=== PATIENT | female | born 1970 | race Caucasian/White ===

== ENCOUNTER 2017-06-27 21:37 | Emergency (ER) | payer OTHER ==
[2017-06-27 22:04] VITALS: BP 116/70; PULSE 62; RESP 18; TEMP 96.4
[2017-06-27 22:36] LABS: Glucose,Whole Blood 98 mg/dL (75-99)
== END 2017-06-27 22:58 | disposition left against medical advice (07) ==
LOC: EC 21:37
DX: T50.905A Adverse effect of unspecified drugs, medicaments and biological substances, initial encounter (principal); R14.0 Abdominal distension (gaseous)
CPT/HCPCS: 36415; 99499

== ENCOUNTER 2020-02-06 19:57 | Emergency (ER) | payer OTHER ==
--- NOTE | 2020-02-06 21:26 | XR ---
EXAMINATION TYPE: XR Hip Complete LT DATE OF EXAM: 02/06/2020 COMPARISON: NONE HISTORY: Hip pain TECHNIQUE: FINDINGS: 2 views were obtained and show no fracture nor dislocation. Hip joint space is fairly donte l. Sacroiliac joint appears intact. IMPRESSION: Negative left hip exam.
--- NOTE | 2020-02-06 21:40 | ED ---
Lower Extremity Injury HPI - General Chief Complaint: Extremity Injury, Lower Stated Complaint: Hip pain Time Seen by Provider: 02/06/20 20:14 Source: patient Mode of arrival: ambulatory Limitations: no limitations - History of Present Illness Initial Comments: 49-year-old female presenting for right hip pain patient states that she slept on a rollaway bed she states is very uncomfortable she laid on her left hip. She states she woke up with hip pain. She states that increases range of motion. Patient states is not in her back denies a loss of bowel bladder control urinary retention numbness of the leg. Patient states she has full strength however when she ranges the leg the hip hurts she denies any fevers redness or swelling of the area. Patient denies any falls or direct trauma. Patient denies any coolness or pallor of the extremity. Remaining review systems negative upon arrival patient appears well no signs of acute distress ambulatory - Related Data Home Medications Medication Instructions Recorded Confirmed busPIRone HCL 15 mg PO BID PRN 07/08/15 06/27/17 Omeprazole 20 mg PO DAILY 06/27/17 06/27/17 Previous Rx's Medication Instructions Recorded Cyclobenzaprine [Flexeril] 10 mg PO TID PRN 7 Days #21 tab 02/06/20 Ibuprofen 600 mg PO Q8H 7 Days #21 tab 02/06/20 Allergies Allergy/AdvReac Type Severity Reaction Status Date / Time lactose AdvReac Unknown Bloating, Verified 02/06/20 20:10 upset stomach Review of Systems ROS Statement: Those systems with pertinent positive or pertinent negative responses have been documented in the HPI. ROS Other: All systems not noted in ROS Statement are negative. Past Medical History Past Medical History: COPD, GERD/Reflux, Seizure Disorder, Skin Disorder, Thyroid Disorder Additional Past Medical History / Comment(s): HYPOGLYCEMIA, LAST SEIZURE AUG 2012 History of Any Multi-Drug Resistant Organisms: None Reported Past Surgical History: Appendectomy, Hernia Repair, Orthopedic Surgery, Tubal Ligation, Uterine Ablation Additional Past Surgical History / Comment(s): Laparoscopy, UTERINE ABLATION WITH NOVASURE , RT SHOULDER SURGERY. Past Anesthesia/Blood Transfusion Reactions: No Reported Reaction Past Psychological History: Anxiety, Depression Smoking Status: Current every day smoker Past Alcohol Use History: Occasional Past Drug Use History: Marijuana - Past Family History Sister(s) Family Medical History: Cancer Additional Family Medical History / Comment(s): 1/2 SISTER HAD OVARIAN CA Father Family Medical History: Coronary Artery Disease (CAD) Additional Family Medical History / Comment(s): HEART PROBLEMS-MULT HEART PROCEDURES AND STENT General Exam - General Exam Comments Initial Comments: General: The patient is awake and alert, in no distress, and does not appear acutely ill. Eye: +3 mm pupils are equal, round and reactive to light, extra-ocular movements are intact. No nystagmus. There is normal conjunctiva bilaterally. No signs of icterus. Ears, nose, mouth and throat: There are moist mucous membranes and no oral lesions. Neck: The neck is supple, there is no tenderness or JVD. Cardiovascular: There is a regular rate and rhythm. No murmur, rub or gallop is appreciated. Respiratory: Lungs are clear to auscultation, respirations are non-labored, breath sounds are equal. No wheezes, stridor, rales, or rhonchi. Gastrointestinal: Soft, non-distended, non-tender abdomen without masses or organomegaly noted. There is no rebound or guarding present. Musculoskeletal: Upon inspection of the hips b/l there is no skin changes noted. Tenderness laterally to palpation. No lumbar midline pain. Normal ROM of the LE b/l including hips, knees and ankles, patient complains up pain only with ROM at the left hip. Strength 5/5 of davey knees ankle b/l, refuses to full range at the left hip secondary to pain. Sensation intact of the LE b/l. DP pulses equal bilaterally 2+. Neurological: A&O x 3. CN II-XII intact grossly, There are no obvious motor or sensory deficits. Coordination appears grossly intact. Speech is normal. Skin: Skin is warm and dry and no rashes or lesions are noted. Psychiatric: Cooperative, appropriate mood & affect, normal judgment. Limitations: no limitations Course Vital Signs 02/06/20 02/06/20 20:01 21:58 Temperature 98.4 F 98.2 F Pulse Rate 99 82 Respiratory 18 16 Rate Blood Pressure 133/80 130/86 O2 Sat by Pulse 99 98 Oximetry Medical Decision Making - Medical Decision Making 49-year-old female presented for left hip pain after sleeping on a roll over a mattress. Patient is neurovascularly intact. No decreased strength denies any back pain. There is no clinical history concerning for cauda equina at this time. Patient is ambulatory weightbearing on the left leg. Patient has no fevers peripheral exam unremarkable no skin changes. X-ray revealed no acute osseous process at this time feel patient is stable for discharge with sympto matically treatment and close primary care follow-up to primary's per discussed at length and patient was discharged appearing well Disposition Clinical Impression: Left hip pain Disposition: HOME SELF-CARE Condition: Good Instructions (If sedation given, give patient instructions): Hip Pain (ED) Additional Instructions: Please use medication as discussed. Please follow-up with family doctor in the next 2 days of symptoms have not improved. Please return to emergency room if the symptoms increase or worsen or for any other concerns. Prescriptions: Cyclobenzaprine [Flexeril] 10 mg PO TID PRN 7 Days #21 tab PRN Reason: Muscle Spasm Ibuprofen 600 mg PO Q8H 7 Days #21 tab Is patient prescribed a controlled substance at d/c from ED?: No Referrals: Manny Tapia DO [Primary Care Provider] - 1-2 days Time of Disposition: 21:39
[2020-02-06] MEDS ORDERED: ACET/COD 300 MG/30 MG STARTER PACK 6 TAB BTL PO STA (21:46)
[2020-02-06] MEDS ORDERED: CYCLOBENZAPRINE 10MG STARTER 3 TAB BTL PO STA (21:46)
[2020-02-06 21:59] VITALS: BP 130/86; PULSE 82; RESP 16; TEMP 98.2
== END 2020-02-06 21:58 | disposition home or self-care (01) ==
LOC: EC 19:57
DX: M25.552 Pain in left hip (principal); K21.9 Gastro-esophageal reflux disease without esophagitis; Z79.899 Other long term (current) drug therapy; Z91.011 Allergy to milk products; Z98.890 Other specified postprocedural states
CPT/HCPCS: 73502; 99283

== ENCOUNTER → 2020-08-10 | Outpatient (CLI) | payer OTHER ==
--- NOTE | 2020-08-10 12:38 | XR ---
EXAMINATION TYPE: XR cervical spine 5 views comp, XR Hip Complete 2 views RT DATE OF EXAM: 08/10/2020 COMPARISON: None HISTORY: 50-year-old female right-sided base of the skull pain radiating down the neck and also right hip pain. FINDINGS: Cervical spine: Facet and uncovertebral joint arthropathy. On the right, this contributes to moderate bony neuroforam inal narrowing at C4-C5 and mild at the 3-C4. On the left, this contribute to moderate bony neurofora amanda narrowing at C3-C4 and mild at C5-C6. No predental space widening or prevertebral soft tissue swelling. Degenerative grade 1 anterolisthesi s C4-C5. Otherwise, alignment is maintained. Moderate degenerative disc disease and endplate spondylo sis mid and lower cervical spine. On the odontoid view, there is degenerative joint space narrowing of the left C1-C2 lateral mass angeles culation. Right hip: Mild marginal spurring. Pelvic phleboliths. No acute fracture, subluxation, dislocation. IMPRESSION: 1. Cervical spine: Moderate multilevel spondylotic change. This results in moderate bony neuroforamin al narrowing on the right at C4-C5 and on the left at C3-C4. Degenerative grade 1 anterolisthesis at C4-C5. Additional degenerative change on the left at the C1-C2 lateral mass articulation. 2. Right hip: Very mild early degenerative spurring. No acute osseous abnormality seen.
== END | disposition home or self-care (01) ==
LOC: RADXRMAIN 10:34
PROVIDERS: ATTEND Family Medicine
DX: M48.02 Spinal stenosis, cervical region (principal); M43.12 Spondylolisthesis, cervical region; M47.892 Other spondylosis, cervical region; M25.551 Pain in right hip; M25.751 Osteophyte, right hip
CPT/HCPCS: 72050; 73502

== ENCOUNTER → 2021-01-05 | Outpatient (CLI) | payer OTHER ==
--- NOTE | 2021-01-05 21:08 | MR ---
EXAMINATION TYPE: MR cervical spine wo con DATE OF EXAM: 01/05/2021 COMPARISON: None HISTORY: Pain in Right side of neck, Pain and weakness with tingling in both arms X 1 year CONTRAST: Performed utilizing 0 mL intravenous Gadavist gadolinium contrast. TECHNIQUE: Multiplanar multiecho imaging on a 3.0 Darleen magnet is performed through the cervical spin e. FINDINGS: The craniovertebral junction is normal. Vertebral body alignment is normal. Spinal cord maintains normal signal through its visualized course. C7-T1: No focal disc herniation or significant disc bulge is evident. No spinal canal stenosis or n eural foraminal stenosis is present. C6-7: Broad-based disc bulge has mild anterior thecal sac compression. No cord contact is evident. No spinal canal stenosis present. Uncovertebral joint hypertrophy has mild right and moderate left fora amanda stenosis.. C5-6: Broad-based disc bulge has moderate anterior thecal sac compression. No cord contact or spinal canal stenosis is present. Uncovertebral joint hypertrophy is moderate left foraminal stenosis. C4-5: No focal disc herniation or significant disc bulge is evident. No spinal canal stenosis or des ral foraminal stenosis is present. Minimal uncovertebral joint hypertrophy may be present on the left C3-4: There is a large central broad-based disc herniation with moderate anterior thecal sac compress ion. No cord contact is evident. There may be contact with the exiting nerve roots of the foramen. Un covertebral joint hypertrophy is present with moderate bilateral foraminal stenosis. Small endplate s pur from the inferior endplate of C3 may be present.. C2-3: No focal disc herniation or significant disc bulge is evident. No spinal canal stenosis or des ral foraminal stenosis is present. IMPRESSIONS: 1. Large broad disc herniation C3-4 with moderate anterior thecal sac compression. 2. Disc bulging C5-6 C6-7 anterior thecal sac contact without stenosis.
--- NOTE | 2021-01-05 23:51 | MR ---
EXAMINATION TYPE: MR hip RT wo con DATE OF EXAM: 01/05/2021 COMPARISON: None HISTORY: Right Hip pain, locking , clicking and limited movement. X 1 year Multiplanar multiecho imaging of the pelvis and right hip was performed without contrast. FINDINGS: The pelvic ring is intact. There is no evidence of a pelvic mass. Bladder distends smoothly. There is no sign of free fluid in the pelvis. The sacroiliac joints appear intact. The proximal femurs are intact. Hip joint spaces are fairly symm etric. I see no significant joint space narrowing. Signal pattern in the femoral heads is fairly normal and there is no evidence of avascular necrosis. There is no evidence of soft tissue mass. There is no sign of hip joint effusion. IMPRESSION: Negative MR scan of the right hip.
== END | disposition home or self-care (01) ==
LOC: RADMRIMAIN 16:01
PROVIDERS: ATTEND Family Medicine
DX: M50.21 Other cervical disc displacement, high cervical region (principal); M25.551 Pain in right hip
CPT/HCPCS: 72141

== ENCOUNTER → 2021-01-06 | Outpatient (CLI) | payer OTHER ==
--- NOTE | 2021-01-10 10:35 | MM ---
Reason for exam: screening (asymptomatic). Last mammogram was performed 10 years and 11 months ago. History: Patient is postmenopausal. Took hormonal contraceptives for 35 years. Physical Findings: A clinical breast exam by your physician is recommended on an annual basis and results should be correlated with mammographic findings. MG 3D Screening Mammo W/Cad Bilateral CC and MLO view(s) were taken. Prior study comparison: August 09, 2010, right breast ultrasound. January 20, 2010, right breast mammogram dig work up. January 18, 2010, bilateral digital screening mammogram. The breast tissue is heterogeneously dense. This may lower the sensitivity of mammography. Left central medial focal asymmetry incompletely disperses on 3D images. Right posterior central asymmetric density right MLO view appears to persist on 3D images. ASSESSMENT: Incomplete: need additional imaging evaluation, BI-RAD 0 RECOMMENDATION: Special view mammogram of both breasts. (3D) If lesion persists on supplemental views, image directed ultrasound is recommended. [facility] will attempt to contact patient to return for supplemental views and ultrasound if indicated.
== END | disposition home or self-care (01) ==
LOC: RADMAMWWP 15:58
PROVIDERS: ATTEND Family Medicine
DX: Z12.31 Encounter for screening mammogram for malignant neoplasm of breast (principal)
CPT/HCPCS: 77063; 77067

== ENCOUNTER → 2021-02-06 | Outpatient (CLI) | payer OTHER ==
--- NOTE | 2021-02-06 11:25 | MM ---
Reason for exam: additional evaluation requested from abnormal screening. Last mammogram was performed 1 month ago. History: Patient is postmenopausal. Took hormonal contraceptives for 35 years. Physical Findings: Nurse did not find any significant physical abnormalities on exam. MG Work Up Mamm w CAD BILAT Bilateral spot compression CC, spot compression MLO, and LM view(s) were taken. Prior study comparison: January 06, 2021, bilateral MG 3d screening mammo w/cad. August 09, 2010, right breast ultrasound. January 20, 2010, right breast mammogram dig work up. The breast tissue is heterogeneously dense. This may lower the sensitivity of mammography. Anterior focal asymmetry on the left disperses. Questionable minimal persisting density on additional view of the right breast superior to the retroareolar plane. These results were verbally communicated with the patient and result sheet given to the patient on 02/06/21. ASSESSMENT: Incomplete: need additional imaging evaluation, BI-RAD 0 RECOMMENDATION: Ultrasound of the right breast. (superior half)
--- NOTE | 2021-02-06 11:27 | USB ---
Reason for exam: additional evaluation requested from abnormal screening. History: Patient is postmenopausal. Took hormonal contraceptives for 35 years. US Breast Workup Limited RT Right limited breast ultrasound including focal area of concern, retroareolar and axilla demonstrates a 0.5 x 0.3 x 0.3cm mixed lesion at 10 o'clock probable cyst with debris and a 0.3 x 0.3 x 0.4cm cystic lesion at 10 o'clock. Scanned 9-3 o'clock. These results were verbally communicated with the patient and result sheet given to the patient on 02/06/21. ASSESSMENT: Probably benign, BI-RAD 3 RECOMMENDATION: Follow-up diagnostic mammogram of the right breast in 6 months.
== END | disposition home or self-care (01) ==
LOC: RADMAMWWP 08:56
PROVIDERS: ATTEND Family Medicine
DX: R92.8 Other abnormal and inconclusive findings on diagnostic imaging of breast (principal)
CPT/HCPCS: 77066

== ENCOUNTER → 2021-11-27 | Outpatient (CLI) | payer OTHER ==
--- NOTE | 2021-11-27 11:41 | MM ---
Reason for exam: follow-up at short interval from prior study. Last mammogram was performed 10 months ago. History: Patient is postmenopausal. Took hormonal contraceptives for 35 years. Physical Findings: Nurse did not find any significant physical abnormalities on exam. MG Diagnostic Mammo RT w CAD CC and MLO view(s) were taken of the right breast. Prior study comparison: February 06, 2021, bilateral MG work up mamm w CAD BILAT. January 06, 2021, bilateral MG 3d screening mammo w/cad. The breast tissue is heterogeneously dense. This may lower the sensitivity of mammography. No significant new findings when compared with previous films. These results were verbally communicated with the patient and result sheet given to the patient on 11/27/21. ASSESSMENT: Benign, BI-RAD 2 RECOMMENDATION: Return to routine screening mammogram schedule for both breasts. Back on schedule for January 2022.
== END | disposition home or self-care (01) ==
LOC: RADMAMWWP 10:28
PROVIDERS: ATTEND Family Medicine
DX: R92.2 Inconclusive mammogram (principal); Z78.0 Asymptomatic menopausal state
CPT/HCPCS: 77065

== ENCOUNTER 2022-03-14 16:24 | Emergency (ER) | payer OTHER ==
[2022-03-14 17:09] VITALS: BP 106/69; PULSE 106; RESP 18; TEMP 97.4
--- NOTE | 2022-03-14 17:36 | XR ---
EXAMINATION TYPE: XR shoulder complete RT DATE OF EXAM: 03/14/2022 COMPARISON: 8:15 HISTORY: Pain TECHNIQUE: 3 views FINDINGS: I see no fracture nor dislocation. Glenohumeral joint is intact. AC joint is intact. There are no pathologic calcifications. IMPRESSION: Negative right shoulder exam. No change.
--- NOTE | 2022-03-14 17:43 | XR ---
EXAMINATION TYPE: XR elbow complete RT DATE OF EXAM: 03/14/2022 COMPARISON: 07/09/2015 HISTORY: Pain TECHNIQUE: 3 views FINDINGS: I see no fracture nor dislocation. Joint spaces are normal. No sign of joint effusion. IMPRESSION: Negative right elbow exam. No fracture. No change.
--- NOTE | 2022-03-14 17:43 | XR ---
EXAMINATION TYPE: XR chest 2V DATE OF EXAM: 03/14/2022 COMPARISON: NONE HISTORY: Pain TECHNIQUE: 2 views FINDINGS: Heart and mediastinum are normal. Lungs are clear. Diaphragm is normal. Bony thorax appears normal. IMPRESSION: Normal chest.
[2022-03-14] MEDS ORDERED: ACETAMINOPHEN TAB 500 MG TAB PO STA (18:17)
[2022-03-14] MEDS ORDERED: ORPHENADRINE 30 MG/ML 2 ML VIAL IM STA (18:17)
--- NOTE | 2022-03-14 18:26 | ED ---
Upper Extremity HPI - General Chief Complaint: Extremity Injury, Upper Stated Complaint: Left rib Pain, Right arm injury Time Seen by Provider: 03/14/22 18:08 Source: patient Mode of arrival: ambulatory Limitations: no limitations - History of Present Illness Initial Comments: This is a pleasant 51-year-old female with history of COPD, acid reflux, seiz ures. She presents in respiratory complaining of left rib pain as well as pain to her right shoulder, right elbow and right wrist. Patient states that she was leaning over a couch to grab something when the couch --left rib cage hit a wooden object on the couch. Patient then went to push the couch back and injured her right wrist, elbow, and shoulder.Patient complaining of sharp pain to the left rib area when it is touched, when she takes deep breath in, and oriented torso as well. Otherwise wrist and she has pain at the right wrist, elbow, and shoulder with movement. No headache, no fever or chills, no changes in vision or hearing, no sore throat or difficulty with speech, no neck pain, no chest pain or shortness of breath, no abdominal pain, no nausea or vomiting, no changes in urination or bowel movements, no numbness or tingling, , no skin rashes or lesions. Patient took ibuprofen at home. - Related Data Home Medications Medication Instructions Recorded Confirmed busPIRone HCL 15 mg PO BID PRN 07/08/15 06/27/17 Omeprazole 20 mg PO DAILY 06/27/17 06/27/17 Previous Rx's Medication Instructions Recorded Cyclobenzaprine [Flexeril] 10 mg PO TID PRN 7 Days #21 tab 02/06/20 Ibuprofen 600 mg PO Q8H 7 Days #21 tab 02/06/20 Cyclobenzaprine [Flexeril] 10 mg PO TID PRN #20 tab 03/14/22 Ibuprofen [Motrin] 600 mg PO Q8HR PRN #30 tab 03/14/22 Allergies Allergy/AdvReac Type Severity Reaction Status Date / Time lactose AdvReac Unknown Bloating, Verified 03/14/22 16:58 upset stomach Review of Systems ROS Statement: Those systems with pertinent positive or pertinent negative responses have been documented in the HPI. ROS Other: All systems not noted in ROS Statement are negative. Past Medical History Past Medical History: COPD, GERD/Reflux, Seizure Disorder, Skin Disorder, Thyroid Disorder Additional Past Medical History / Comment(s): HYPOGLYCEMIA, LAST SEIZURE AUG 2012 History of Any Multi-Drug Resistant Organisms: None Reported Past Surgical History: Appendectomy, Hernia Repair, Orthopedic Surgery, Tubal Ligation, Uterine Ablation Additional Past Surgical History / Comment(s): Laparoscopy, UTERINE ABLATION WITH NOVASURE , RT SHOULDER SURGERY. Past Anesthesia/Blood Transfusion Reactions: No Reported Reaction Past Psychological History: Anxiety, Depression Smoking Status: Current every day smoker Past Alcohol Use History: Occasional Past Drug Use History: Marijuana - Past Family History Sister(s) Family Medical History: Cancer Additional Family Medical History / Comment(s): 1/2 SISTER HAD OVARIAN CA Father Family Medical History: Coronary Artery Disease (CAD) Additional Family Medical History / Comment(s): HEART PROBLEMS-MULT HEART PROCEDURES AND STENT General Exam Limitations: no limitations General appearance: alert, in distress Head exam: Present: atraumatic, normocephalic, normal inspection Eye exam: Present: normal appearance, PERRL, EOMI. Absent: scleral icterus, conjunctival injection, periorbital swelling ENT exam: Present: normal exam, normal oropharynx, mucous membranes moist Neck exam: Present: normal inspection. Absent: tenderness, meningismus, lymphadenopathy Respiratory exam: Present: normal lung sounds bilaterally, chest wall tenderness (Left lateral ribs, no break in skin integrity. No bruising. No crepitus). Absent: respiratory distress, wheezes, rales, rhonchi, stridor, accessory muscle use Cardiovascular Exam: Present: regular rate, normal rhythm, normal heart sounds. Absent: systolic murmur, diastolic murmur, rubs, gallop, clicks GI/Abdominal exam: Present: soft, normal bowel sounds. Absent: distended, tenderness, guarding, rebound, rigid Extremities exam: Present: normal inspection, full ROM, tenderness, normal capi llary refill, other (Soft tissue tenderness to the right wrist, ulnar aspect, right elbow, and right shoulder. Full range of motion. No erythema. No discernible effusion. No break in skin integrity). Absent: pedal edema, joint swelling, calf tenderness Back exam: Present: normal inspection Neurological exam: Present: alert, oriented X3, CN II-XII intact Psychiatric exam: Present: normal affect, normal mood Skin exam: Present: warm, dry, intact, normal color. Absent: rash Course Vital Signs 03/14/22 16:58 Temperature 97.4 F L Pulse Rate 106 H Respiratory 18 Rate Blood Pressure 106/69 O2 Sat by Pulse 98 Oximetry Medical Decision Making - Medical Decision Making Decision symptomology consistent with soft tissue injuries. Possible occult rib fracture. Discussed treatment plan conservative therapy with the patient. Patient has ibuprofen at home. We can have her continue this. We'll add on a muscle relaxer and pain medication. Rice therapy. Patient was told to return to the ER for any signs or symptoms worsen. Told to return immediately if any other problems arise. All questions answered. Treatment plan discussed. Patient in agreement Every effort has been made to ensure accuracy of this dictation. However, due to the limitations of electronic medical records and dictation devices, errors in charting still occur. Patient was told to return to the ER for any signs or symptoms worsen. Told to return immediately if any other problems arise. All questions answered. Treatment plan discussed. Patient in agreement Every effort has been made to ensure accuracy of this dictation. However, due to the limitations of electronic medical records and dictation devices, errors in charting still occur. - Radiology Data Radiology results: report reviewed, image reviewed No acute findings as read by radiology. I did review these films myself Disposition Clinical Impression: Contusion of rib on left side, Right shoulder strain, Sprain of right elbow, Right wrist sprain Disposition: HOME SELF-CARE Condition: Stable Instructions (If sedation given, give patient instructions): Wrist Injury (ED), Sprain (ED), Elbow Sprain (ED), Rib Contusion (ED) Additional Instructions: Follow-up with your regular physician or orthopedics if necessary.. Return to the ER immediately if any symptoms worsen, new symptoms arise, or any other problems develop. Prescriptions: Cyclobenzaprine [Flexeril] 10 mg PO TID PRN #20 tab PRN Reason: Spasms Ibuprofen [Motrin] 600 mg PO Q8HR PRN #30 tab PRN Reason: Pain Is patient prescribed a controlled substance at d/c from ED?: No Referrals: Manny Tapia DO [Primary Care Provider] - 1-2 days Pavel Rankin MD [STAFF PHYSICIAN] - 03/21/22
--- NOTE | 2022-03-14 18:45 | XR ---
EXAMINATION TYPE: XR wrist complete RT DATE OF EXAM: 03/14/2022 COMPARISON: NONE HISTORY: Pain TECHNIQUE: 3 views FINDINGS: I see no fracture nor dislocation. Joint spaces are normal. Metacarpals are intact. Radius and ulna appear intact. IMPRESSION: Negative right wrist exam
[2022-03-14] MEDS ORDERED: ACET/COD 300 MG/30 MG STARTER PACK 6 TAB BTL PO STA (18:52)
== END 2022-03-14 19:10 | disposition home or self-care (01) ==
LOC: EC 16:24
DX: S20.212A Contusion of left front wall of thorax, initial encounter (principal); S46.911A Strain of unspecified muscle, fascia and tendon at shoulder and upper arm level, right arm, initial encounter; S53.491A Other sprain of right elbow, initial encounter; S63.501A Unspecified sprain of right wrist, initial encounter; J44.9 Chronic obstructive pulmonary disease, unspecified; K21.9 Gastro-esophageal reflux disease without esophagitis; E07.9 Disorder of thyroid, unspecified; F41.9 Anxiety disorder, unspecified; F32.A Depression, unspecified; F17.200 Nicotine dependence, unspecified, uncomplicated; F12.90 Cannabis use, unspecified, uncomplicated; Z90.49 Acquired absence of other specified parts of digestive tract; Z98.51 Tubal ligation status; W22.8XXA Striking against or struck by other objects, initial encounter
CPT/HCPCS: 99283; 96372; 73030; 73080; 73110; 71046; J2360